=== PATIENT | male | born 1950 | race Caucasian/White ===

== ENCOUNTER 2023-11-02 14:20 | Day surgery (SDC) | payer BC, MEDICARE ==
[~2023-11-02 14:20] MED LIST: Brimonidine 0.2% Ophth Soln 5 ML Bottle EYERT SCH; Cefuroxime 10 MG/ML SYRINGE EYERT SCH; Lidocaine 1% PF 2 ML SDV INJECT SCH; Phenylephrine 2.5% Ophth Soln 2 ML Bot EYERT SCH; Pilocarpine 4% Ophth Soln 15 ML Bot EYERT SCH; Polymyxin B/Trimethoprim 10 ML Bottle EYERT SCH; Tetracaine HCl/PF 0.5% 4 ML Bottle EYEBOTH SCH; Tropicamide 1% Ophth Soln 3 ML Bottle EYERT SCH
[2023-11-02] MEDS: Polymyxin B/Trimethoprim 10 ML Bottle EYERT SCH ×4 (15:16→16:40)
[2023-11-02] MEDS: Brimonidine 0.2% Ophth Soln 5 ML Bottle EYERT SCH ×4 (15:20→16:40)
[2023-11-02] MEDS: Phenylephrine 2.5% Ophth Soln 2 ML Bot EYERT SCH ×6 (15:24→16:29)
[2023-11-02] MEDS: Tropicamide 1% Ophth Soln 3 ML Bottle EYERT SCH ×4 (15:28→16:00)
[2023-11-02] MEDS: Lidocaine 1% PF 2 ML SDV INJECT SCH ×2 (15:32→16:29)
[2023-11-02] MEDS: Proparacaine 0.5% Ophth Soln 15 ML Bottle EYEBOTH SCH ×5 (15:32→16:29)
[2023-11-02] MEDS: Cefuroxime 10 MG/ML SYRINGE EYERT SCH ×2 (15:33→16:40)
[2023-11-02] MEDS: Pilocarpine 4% Ophth Soln 15 ML Bot EYERT SCH ×2 (15:33→16:40)
[2023-11-02 16:51] VITALS: BP 158/86; PULSE 63
== END 2023-11-02 16:52 ==
LOC: JD.SDS 14:20
PROVIDERS: ATTEND Ophthalmology
DX: H25.813 Combined forms of age-related cataract, bilateral (principal); H21.81 Floppy iris syndrome; H40.053 Ocular hypertension, bilateral; H21.40 Pupillary membranes, unspecified eye; H57.813 Brow ptosis, bilateral; H02.831 Dermatochalasis of right upper eyelid; H16.223 Keratoconjunctivitis sicca, not specified as Sjogren's, bilateral; I10 Essential (primary) hypertension; Z79.890 Hormone replacement therapy; Z79.899 Other long term (current) drug therapy
CPT/HCPCS: 66982; A9270; J0697; V2632; J3490

== ENCOUNTER 2024-03-31 07:14 | Day surgery (SDC) | payer MEDICARE ==
[~2024-03-31 07:14] MED LIST changes: -Brimonidine 0.2% Ophth Soln 5 ML Bottle EYERT SCH; -Cefuroxime 10 MG/ML SYRINGE EYERT SCH; +Lidocaine 1% 2 ML ONE; -Lidocaine 1% PF 2 ML SDV INJECT SCH; +Midazolam 1 MG/ML 2 ML SDV ONE; -Phenylephrine 2.5% Ophth Soln 2 ML Bot EYERT SCH; -Pilocarpine 4% Ophth Soln 15 ML Bot EYERT SCH; -Polymyxin B/Trimethoprim 10 ML Bottle EYERT SCH; +Propofol 200 MG/20 ML SDV ONE; +Sodium Chloride 0.9% 10 ML Syringe FLUSH PRN; +Sodium Chloride 0.9% 10 ML Syringe FLUSH SCH; -Tetracaine HCl/PF 0.5% 4 ML Bottle EYEBOTH SCH; -Tropicamide 1% Ophth Soln 3 ML Bottle EYERT SCH; +fentaNYL 100 MCG/2 ML SDV ONE
[2024-03-31] MEDS ORDERED: ceFAZolin 2 GM Vial ONE (09:25)
[2024-03-31] MEDS: Lactated Ringers 1,000 ML IV SCH (09:30)
[2024-03-31] MEDS ORDERED: Rocuronium 50 MG/5 ML Vial ONE ×2 (10:06→11:44)
[2024-03-31] MEDS ORDERED: Dexamethasone 4 MG/ML 5 ML MDV ONE (10:23)
[2024-03-31] MEDS: EPINEPHrine 1 MG/ML SDV ONE (10:28)
[2024-03-31] MEDS: Bupivacaine 0.5% 30 ML SDV ONE (10:28)
[2024-03-31] MEDS ORDERED: ePHEDrine 50 MG/ML SDV ONE (10:30)
[2024-03-31] MEDS ORDERED: Sugammadex Sodium 200 MG/2 ML VIAL IV ONE (11:11)
[2024-03-31] MEDS ORDERED: Ketorolac 15 MG/ML SDV ONE (11:44)
[2024-03-31] MEDS: Ondansetron 4 MG/2 ML SDV IVPUSH PRN (12:13)
[2024-03-31] MEDS ORDERED: HYDROmorphone 0.5 MG/0.5 ML Syringe IVPUSH PRN (12:14)
[2024-03-31] MEDS ORDERED: Ondansetron 4 MG/2 ML SDV IVPUSH PRN (12:14)
[2024-03-31] MEDS: fentaNYL 100 MCG/2 ML SDV IVPUSH PRN (12:21)
[2024-03-31 13:17] VITALS: PULSE 75
[2024-03-31 13:57] VITALS: BP 134/75
== END 2024-03-31 13:49 | disposition home or self-care (01) ==
LOC: JD.SDS 07:14
PROVIDERS: ATTEND Surgery
DX: K40.20 Bilateral inguinal hernia, without obstruction or gangrene, not specified as recurrent (principal); I10 Essential (primary) hypertension; N40.0 Benign prostatic hyperplasia without lower urinary tract symptoms; K21.9 Gastro-esophageal reflux disease without esophagitis; E03.9 Hypothyroidism, unspecified; M19.079 Primary osteoarthritis, unspecified ankle and foot; Z79.890 Hormone replacement therapy; Z79.899 Other long term (current) drug therapy; Z72.0 Tobacco use
CPT/HCPCS: 93005; J0171; J0665; J0690; J1100; J1885; J2250; J2405; J2704; J3010; J3490; J7120